=== PATIENT | female | born 1970 | race Two or more races ===

== ENCOUNTER 2021-06-23 15:27 | Emergency (ER) | payer MEDICAID, OTHER ==
[~2021-06-23] VITALS: Ht 154.9 cm; Wt 79.4 kg
[2021-06-23 15:36] VITALS: BP 197/102
[2021-06-23 15:56] LABS: Basophils # (auto) 0.1 10 ^3/uL (0-0.2); Basophils % (auto) 0.7 % (0.0-2.0); Eosinophils # (auto) 0.2 10 ^3/uL (0-0.8); Eosinophils % (auto) 1.6 % (0.0-7.0); Hematocrit 44.1 % (36.0-46.0); Lymphocytes # (auto) 3.7 10 ^3/uL (0.4-5.4); Lymphocytes % (auto) 37.9 % (10.0-50.0); Mean Corpuscular Hemoglobin 30.5 pg (28.0-32.0); Mean Corpuscular Hgb Conc. 34.1 g/dL (32.0-36.0); Mean Corpuscular Volume 89.5 fL (80.0-100.0); Monocytes # (auto) 0.6 10 ^3/uL (0-1.3); Neutrophils # (auto) 5.3 10 ^3/uL (1.6-8.6); Neutrophils % (auto) 53.8 % (37.0-80.0); Nucleated Red Blood Cells % 0.1 %; Red Blood Cells 4.93 10^6/uL (4.0-5.20); Red Cell Distribution Width 12.4 % (11.8-14.3); White Blood Cell 9.8 10^3/uL (4.4-10.8)
[2021-06-23 16:26] LABS: Albumin 3.5 g/dL (3.4-5.0); Anion Gap 8 (5-15); Blood Urea Nitrogen 11 mg/dL (7-18); Calcium 9.1 mg/dL (8.5-10.1); Carbon Dioxide 27 mmol/L (21-32); Chloride 104 mmol/L (98-107); Glucose 100 mg/dL (74-106); Potassium 3.7 mmol/L (3.5-5.1); Sodium 139 mmol/L (136-145)
[2021-06-23 16:28] LABS: Alanine Aminotransferase 62 U/L (13-56); Aspartate Aminotransferase 33 U/L (15-37); BUN/Creatinine Ratio 15.9; GFR African American 115 mL/min; GFR Non-African American 95 mL/min
[2021-06-23 16:32] LABS: Alkaline Phosphatase 61 U/L (45-117); Bilirubin, Total 0.3 mg/dL (0.2-1.0); Total Protein 8.2 g/dL (6.4-8.2)
[2021-06-23] MEDS ORDERED: IOHEXOL 300 MG/ML 100ML BOTTLE IJ ONE (20:58)
== END 2021-06-24 02:44 | disposition left against medical advice (07) ==
LOC: EDBD 15:27 → ER 15:27
DX: I16.0 Hypertensive urgency (principal); E78.5 Hyperlipidemia, unspecified; Z98.890 Other specified postprocedural states; Z53.29 Procedure and treatment not carried out because of patient's decision for other reasons
CPT/HCPCS: 36415; 74176; 80053; 83605; 84484; 85025; 93005

== ENCOUNTER 2021-06-29 14:12 | Inpatient (IN) | payer MEDICAID ==
[~2021-06-29] VITALS: Ht 154.9 cm; Wt 80.5 kg
[2021-06-29] MEDS ORDERED: SODIUM CHLORIDE 0.9% 500 ML IVB ONE (14:30)
[2021-06-29] MEDS ORDERED: MORPHINE SULFATE 4 MG/ML SYR/VIAL IV ONE (14:30)
[2021-06-29] MEDS ORDERED: ONDANSETRON HCL 4 MG/2 ML VIAL IV ONE (14:30)
[2021-06-29 15:24] LABS: Basophils # (auto) 0.1 10 ^3/uL (0-0.2); Basophils % (auto) 0.8 % (0.0-2.0); Eosinophils # (auto) 0.2 10 ^3/uL (0-0.8); Eosinophils % (auto) 1.9 % (0.0-7.0); Hematocrit 43.2 % (36.0-46.0); Hemoglobin 15.2 g/dL (12.2-16.2); Lymphocytes # (auto) 3.8 10 ^3/uL (0.4-5.4); Lymphocytes % (auto) 39.1 % (10.0-50.0); Mean Corpuscular Hemoglobin 31.4 pg (28.0-32.0); Mean Corpuscular Hgb Conc. 35.3 g/dL (32.0-36.0); Mean Corpuscular Volume 89.1 fL (80.0-100.0); Monocytes # (auto) 0.6 10 ^3/uL (0-1.3); Monocytes % (auto) 5.7 % (0.0-12.0); Neutrophils # (auto) 5.1 10 ^3/uL (1.6-8.6); Neutrophils % (auto) 52.5 % (37.0-80.0); Red Blood Cells 4.85 10^6/uL (4.0-5.20); Red Cell Distribution Width 12.3 % (11.8-14.3); White Blood Cell 9.7 10^3/uL (4.4-10.8)
[2021-06-29 15:33] LABS: Calcium 8.7 mg/dL (8.5-10.1); Chloride 104 mmol/L (98-107); Potassium 3.6 mmol/L (3.5-5.1); Sodium 138 mmol/L (136-145)
[2021-06-29 15:37] LABS: Alanine Aminotransferase 51 U/L (13-56); Albumin 3.5 g/dL (3.4-5.0); Amylase 30 U/L (25-115); Anion Gap 8 (5-15); Aspartate Aminotransferase 24 U/L (15-37); BUN/Creatinine Ratio 14.1; Blood Urea Nitrogen 9 mg/dL (7-18); Carbon Dioxide 26 mmol/L (21-32); GFR African American 126 mL/min; GFR Non-African American 104 mL/min; Glucose 129 mg/dL (74-106); Lipase 112 U/L (73-393)
[2021-06-29 15:42] LABS: Alkaline Phosphatase 64 U/L (45-117); Bilirubin, Total 0.3 mg/dL (0.2-1.0); Total Protein 8.1 g/dL (6.4-8.2)
[2021-06-29] MEDS ORDERED: IOHEXOL 300 MG/ML 100ML BOTTLE IJ ONE (16:42)
[2021-06-29 21:27] LABS: Urine Bacteria FEW /hpf (None Seen); Urine Blood Negative /uL (Negative); Urine Mucus FEW (None Seen); Urine Specific Gravity 1.008 (1.001-1.035); Urine WBC 1 /hpf (0 - 5)
[2021-06-29] MEDS ORDERED: ACETAMINOPHEN 325 MG TAB PO PRN (22:30)
[2021-06-29] MEDS ORDERED: ONDANSETRON HCL 4 MG/2 ML VIAL IV PRN (22:30)
[2021-06-29] MEDS ORDERED: TEMAZEPAM 15 MG CAP PO PRN (22:30)
[2021-06-29 23:47] LABS: INR 1.02 (0.9-1.15); Partial Thromboplastin Time 28.9 sec (23.6-33.0)
[2021-06-30 05:20] LABS: Basophils # (auto) 0 10 ^3/uL (0-0.2); Basophils % (auto) 0.4 % (0.0-2.0); Eosinophils # (auto) 0.1 10 ^3/uL (0-0.8); Hematocrit 40.6 % (36.0-46.0); Hemoglobin 14.2 g/dL (12.2-16.2); Lymphocytes # (auto) 3.2 10 ^3/uL (0.4-5.4); Lymphocytes % (auto) 25.2 % (10.0-50.0); Mean Corpuscular Hemoglobin 31.2 pg (28.0-32.0); Mean Corpuscular Hgb Conc. 34.9 g/dL (32.0-36.0); Mean Corpuscular Volume 89.4 fL (80.0-100.0); Monocytes # (auto) 0.8 10 ^3/uL (0-1.3); Monocytes % (auto) 6.2 % (0.0-12.0); Neutrophils # (auto) 8.6 10 ^3/uL (1.6-8.6); Neutrophils % (auto) 67.2 % (37.0-80.0); Red Blood Cells 4.54 10^6/uL (4.0-5.20); Red Cell Distribution Width 12.5 % (11.8-14.3); White Blood Cell 12.7 10^3/uL (4.4-10.8)
[2021-06-30 05:42] LABS: Calcium 8.6 mg/dL (8.5-10.1); Potassium 3.6 mmol/L (3.5-5.1)
[2021-06-30 05:47] LABS: BUN/Creatinine Ratio 16.9
[2021-06-30] MEDS ORDERED: hydrALAZINE HCL 20 MG/ML VL IV PRN (08:30)
[2021-06-30] MEDS ORDERED: LISINOPRIL 10 MG TAB PO SCH (10:00)
[2021-06-30] MEDS: GEMFIBROZIL 600 MG TAB PO SCH ×2 (10:36→21:32)
[2021-06-30] MEDS: LOSARTAN POTASSIUM 50 MG TAB PO SCH (10:36)
[2021-06-30] MEDS: PANTOPRAZOLE 40 MG TAB PO SCH (10:36)
[2021-06-30] MEDS: HYDROcodone-ACET 5/325MG TAB PO PRN (10:37)
[2021-06-30] MEDS ORDERED: D5W/SOD CHL 0.45%/KCL 20MEQ 1,000 ML IV SCH (17:00)
[2021-06-30 20:00] VITALS: BP 141/78
[2021-06-30 22:00] VITALS: BP 141/78
[2021-07-01 05:00] VITALS: BP 149/76
[2021-07-01 08:00] VITALS: BP 148/99
[2021-07-01] MEDS: LOSARTAN POTASSIUM 50 MG TAB PO SCH (08:29)
[2021-07-01] MEDS: PANTOPRAZOLE 40 MG TAB PO SCH (08:29)
[2021-07-01] MEDS: HYDROcodone-ACET 5/325MG TAB PO PRN (08:30)
[2021-07-01] MEDS: GEMFIBROZIL 600 MG TAB PO SCH (08:30)
[2021-07-01] MEDS ORDERED: GASTROGRAFIN 120 ML SOL ONE (09:06)
[2021-07-01 13:00] VITALS: BP 136/82
[2021-07-01] MEDS ORDERED: LACTULOSE 20Gm/30ML SOLN PO ONE (13:30)
[2021-07-01 17:00] VITALS: BP 174/78
== END 2021-07-01 19:30 | disposition home or self-care (01) | DRG 254 ==
LOC: ER 14:12 → OVERFLOW 22:27 → CENTRAL 06-30 16:52
PROVIDERS: ADMIT Nurse Practitioner; ATTEND Family Medicine
DX: K42.9 Umbilical hernia without obstruction or gangrene (principal); E66.01 Morbid (severe) obesity due to excess calories; E78.00 Pure hypercholesterolemia, unspecified; I10 Essential (primary) hypertension; Z20.822 Contact with and (suspected) exposure to COVID-19; E78.5 Hyperlipidemia, unspecified; Z68.32 Body mass index [BMI] 32.0-32.9, adult; Z82.49 Family history of ischemic heart disease and other diseases of the circulatory system; Z83.3 Family history of diabetes mellitus
CPT/HCPCS: 36415; 74177; 74250; 80048; 80053; 81001; 81025; 82150; 83690; 84484; 85025; 85610; 85730; 87426; 93005; 96361; 96374; 96375; G0378; J2405